=== PATIENT | male | born 1950 | race Caucasian/White ===

== ENCOUNTER 2020-07-06 | Emergency (ER) | payer MEDICARE ==
[2020-07-06] MEDS ORDERED: METFORMIN500 M2 PO (09:46)
[2020-07-06] MEDS ORDERED: LOSARTAN POTASS50 MG PO (09:46)
[2020-07-06] MEDS ORDERED: LANTUS100 UNIT/M SC (09:46)
[2020-07-06] MEDS ORDERED: ASPIRIN81 MG PO (09:47)
[2020-07-06] MEDS ORDERED: PLAVIX75 MG PO (09:47)
[2020-07-06] MEDS ORDERED: INVOKANA300 MG PO (09:47)
[2020-07-06] MEDS ORDERED: FISH OIL1200 M1 PO (09:48)
== END 2020-07-06 11:45 | disposition home or self-care (01) ==
PROC: 0JQ10ZZ Repair Face Subcutaneous Tissue and Fascia, Open Approach (ICD-10-PCS; principal; 2020-07-06)
DX: S01.81XA Laceration without foreign body of other part of head, initial encounter (principal); I10 Essential (primary) hypertension; E11.9 Type 2 diabetes mellitus without complications; W20.8XXA Other cause of strike by thrown, projected or falling object, initial encounter; Y93.K9 Activity, other involving animal care; Z79.4 Long term (current) use of insulin